=== PATIENT | male | born 1960 | race Caucasian/White ===

== ENCOUNTER 2024-02-29 05:07 | Day surgery (SDC) | payer BC ==
[2024-02-26 13:51] VITALS: BMI 32.8
[2024-02-29 10:28] VITALS: TEMP 98.2
[2024-02-29 10:56] VITALS: BP 112/68; PULSE 60; RESP 17
== END 2024-02-29 11:20 | disposition home or self-care (01) ==
LOC: JASU-ENDO 05:07
PROVIDERS: ATTEND Internal Medicine Gastroenterology
PROC: 0DJD8ZZ Inspection of Lower Intestinal Tract, Via Natural or Artificial Opening Endoscopic (ICD-10-PCS; principal; 2024-02-29 09:30)
DX: Z12.11 Encounter for screening for malignant neoplasm of colon (principal); Z85.038 Personal history of other malignant neoplasm of large intestine; Z98.0 Intestinal bypass and anastomosis status; I10 Essential (primary) hypertension